=== PATIENT | female | born 1990 | race Caucasian/White ===

== ENCOUNTER 2022-04-09 14:09 | Observation (INO) ==
[2022-04-09] MEDS ORDERED: Ringers Solution, Lactated 1,000 ML IVC ONE (15:11)
[2022-04-09] MEDS ORDERED: Ringers Solution, Lactated 1,000 ML ONE (15:13)
[2022-04-09 15:40] LABS: Bilirubin,Urine Negative (Negative); Blood,Urine Negative (Negative); Clarity,Urine Turbid (Clear); Color,Urine Yellow (Yellow); Glucose,Urine (UA) Normal (Normal); Ketones,Urine 100 mg/dL (Negative); Leukocyte Esterase,Urine Negative (Negative); Mucus,Urine Many per lpf (None-Few); Nitrite,Urine Negative (Negative); Protein,Urine 50 mg/dL (Neg-Trace); RBC,Urine 0-3 per hpf (0-3); Specific Gravity,Urine 1.023 (1.010-1.025); Squamous Epithelial Cell,Urine Moderate per hpf (None-Few); Urobilinogen,Urine Normal (Normal)
[2022-04-09 15:47] LABS: Basophils % 0.2 %; Hemoglobin 11.1 g/dL (11.5-15.4); Immature Granulocytes % 0.7 % (0-4); Lymphocytes # 0.3 K/mcL (0.6-4.6); Lymphocytes % 5.3 %; Mean Corpuscular HGB Conc 33.6 g/dL (31.6-35.5); Mean Corpuscular Hemoglobin 30.3 pg (28.0-33.3); Mean Corpuscular Volume 90.2 fL (83.0-100.0); Mean Platelet Volume 11.7 fL (9.4-12.4); Monocytes # 0.6 K/mcL (0.0-1.3); Monocytes % 9.4 %; Neutrophils # 5.1 K/mcL (1.6-8.9); Platelet Count 107 K/mcL (140-400); Red Blood Count 3.66 M/mcL (3.82-4.97); Red Cell Distribution Width 12.9 % (11.5-14.5); Segmented Neutrophils % 84.4 %; White Blood Count 6.1 K/mcL (4.3-11.1)
[2022-04-09] MEDS ORDERED: Terconazole Vag CRM 20 GM TUBE VG SCH (21:00)
== END 2022-04-09 19:06 | disposition home or self-care (01) ==
LOC: 1NENULAB
PROVIDERS: ADMIT Obstetrics & Gynecology; ATTEND Obstetrics & Gynecology

== ENCOUNTER → 2022-04-23 22:00 | Observation (INO) ==
[2022-04-23] MEDS: Ringers Solution, Lactated 1,000 ML IVC SCH ×2 (12:54→19:17)
[2022-04-23 19:17] LABS: Amorphous Sediment,Urine Few per hpf (None-Few); Bacteria,Urine Few per hpf (None-Few); Bilirubin,Urine Negative (Negative); Blood,Urine Negative (Negative); Clarity,Urine Turbid (Clear); Color,Urine Yellow (Yellow); Glucose,Urine (UA) Normal (Normal); Ketones,Urine Negative (Negative); Leukocyte Esterase,Urine Negative (Negative); Mucus,Urine Many per lpf (None-Few); Nitrite,Urine Negative (Negative); Protein,Urine 30 mg/dL (Neg-Trace); RBC,Urine 0-3 per hpf (0-3); Specific Gravity,Urine 1.021 (1.010-1.025); Squamous Epithelial Cell,Urine Moderate per hpf (None-Few); Urobilinogen,Urine Normal (Normal); WBC,Urine 0-3 per hpf (0-3)
[~2022-04-23 22:00] MED LIST: *HR* HYDROmorphone PF 0.5 MG/0.5 ML SYRINGE IVP PRN; *HR* Labetalol 20 MG/4 ML SYRINGE IVP PRN; Acetaminophen IV 1,000 MG/100 ML BAG IVPB PRN; Morphine Sulfate 2 MG/ML SYRINGE IVP ONE; Morphine Sulfate 2 MG/ML SYRINGE SQ ONE; Promethazine 6.25 MG in Water for inj. (sterile) 20 ML IVPB PRN
== END | disposition home or self-care (01) ==
LOC: 1NENULAB
PROVIDERS: ADMIT Obstetrics & Gynecology; ATTEND Obstetrics & Gynecology

== ENCOUNTER 2022-04-25 15:05 | Inpatient (IN) ==
[2022-04-25] MEDS ORDERED: Famotidine 20 MG/2 ML VIAL IVP ONE (15:27)
[2022-04-25] MEDS ORDERED: Metoclopramide 10 MG/2 ML VIAL IVP ONE (15:27)
[2022-04-25] MEDS ORDERED: Ringers Solution, Lactated 1,000 ML IVC ONE (15:27)
[2022-04-25] MEDS ORDERED: OXYTOCIN/RINGERS LACTATE 10 UNIT/166.6 ML BAG IVC ONE (15:27)
[2022-04-25] MEDS ORDERED: CeFAZolin 2,000 MG/120 ML BAG IVPB ONE (15:27)
[2022-04-25] MEDS ORDERED: Oxytocin 30 UNIT/503 ML BAG IVC SCH ×2 (15:30→21:00)
[2022-04-25] MEDS ORDERED: Ringers Solution, Lactated 1,000 ML IVC SCH ×2 (15:30→21:00)
[2022-04-25] MEDS ORDERED: Ondansetron 4 MG/2 ML VIAL ONE (16:37)
[2022-04-25] MEDS ORDERED: *HR* FentaNYL (PF) 100 MCG/2 ML VIAL ONE (16:37)
[2022-04-25] MEDS ORDERED: *HR* Morphine Sulfate/PF 10 MG/10 ML AMPUL ONE (16:37)
[2022-04-25 17:10] LABS: Basophils % 0.2 %; Eosinophils % 0.1 %; Hematocrit 33.5 % (35.3-44.9); Immature Granulocytes % 0.8 % (0-4); Lymphocytes # 1.3 K/mcL (0.6-4.6); Lymphocytes % 14.5 %; Mean Corpuscular HGB Conc 32.8 g/dL (31.6-35.5); Mean Corpuscular Hemoglobin 29.9 pg (28.0-33.3); Mean Platelet Volume 11.9 fL (9.4-12.4); Monocytes # 0.8 K/mcL (0.0-1.3); Monocytes % 8.8 %; Neutrophils # 6.8 K/mcL (1.6-8.9); Platelet Count 139 K/mcL (140-400); Red Blood Count 3.68 M/mcL (3.82-4.97); Segmented Neutrophils % 75.6 %
[2022-04-25 17:12] LABS: Amphetamine Screen,Urine Negative ng/mL (Cutoff=1000); Barbiturate Screen,Urine Negative ng/mL (Cutoff=200); Benzodiazepines Screen,Urine Negative ng/mL (Cutoff=200); Cannabinoid Screen,Urine Negative ng/mL (Cutoff = 50); Cocaine Screen,Urine Negative ng/mL (Cutoff= 300); Opiate Screen,Urine Negative ng/mL (Cutoff=300); Phencyclidine Screen,Urine Negative ng/mL (Cutoff=25)
[2022-04-25] MEDS ORDERED: Acetaminophen IV 1,000 MG/100 ML BAG IVPB ONE (17:49)
[2022-04-25] MEDS ORDERED: Ringers Solution, Lactated 1,000 ML ONE (18:03)
[2022-04-25] MEDS ORDERED: Ketorolac 30 MG/ML VIAL ONE (18:44)
[2022-04-25] MEDS ORDERED: *HR* Nalbuphine 10 MG/ML AMPUL IV PRN (20:08)
[2022-04-25] MEDS ORDERED: Ondansetron 4 MG/2 ML VIAL IVP PRN (20:44)
[2022-04-25] MEDS ORDERED: Rho Immune Globulin 1,500 UNIT SYRINGE IM ONE (20:44)
[2022-04-25] MEDS ORDERED: *HR* OxyCODONE Immed Rel 5 MG TABLET PO PRN (20:44)
[2022-04-25] MEDS ORDERED: Simethicone 80 MG TAB.CHEW PO PRN (20:44)
[2022-04-25] MEDS ORDERED: Metoclopramide 10 MG/2 ML VIAL IVP PRN (20:44)
[2022-04-25] MEDS: Acetaminophen 325 MG TABLET PO SCH (23:39)
[2022-04-25] MEDS: *HR* Enoxaparin 60 MG/0.6 ML SYRINGE SQ SCH (23:39)
[2022-04-25] MEDS: Ibuprofen 600 MG TABLET PO SCH (23:40)
[2022-04-26 05:22] LABS: Basophils % 0.3 %; Eosinophils % 0.2 %; Hematocrit 30.2 % (35.3-44.9); Hemoglobin 9.8 g/dL (11.5-15.4); Immature Granulocytes % 0.5 % (0-4); Lymphocytes % 11.7 %; Mean Corpuscular HGB Conc 32.5 g/dL (31.6-35.5); Mean Corpuscular Hemoglobin 29.4 pg (28.0-33.3); Mean Corpuscular Volume 90.7 fL (83.0-100.0); Mean Platelet Volume 11.9 fL (9.4-12.4); Monocytes # 0.8 K/mcL (0.0-1.3); Monocytes % 9.4 %; Neutrophils # 6.9 K/mcL (1.6-8.9); Platelet Count 155 K/mcL (140-400); Red Blood Count 3.33 M/mcL (3.82-4.97); Red Cell Distribution Width 12.9 % (11.5-14.5); Segmented Neutrophils % 77.9 %; White Blood Count 8.8 K/mcL (4.3-11.1)
[2022-04-26] MEDS: Acetaminophen 325 MG TABLET PO SCH ×4 (06:49→22:34)
[2022-04-26] MEDS: Prenatal Vit/FA 1 EACH TABLET PO SCH (09:58)
[2022-04-26] MEDS: Ibuprofen 600 MG TABLET PO SCH ×3 (09:58→22:35)
[2022-04-26] MEDS: *HR* Enoxaparin 60 MG/0.6 ML SYRINGE SQ SCH ×2 (11:20→22:35)
[2022-04-27 07:22] VITALS: BP 130/83; PULSE 84; TEMP 98; O2SAT 95
[2022-04-27] MEDS: Acetaminophen 325 MG TABLET PO SCH (09:08)
[2022-04-27] MEDS: Ibuprofen 600 MG TABLET PO SCH (09:08)
[2022-04-27] MEDS: Prenatal Vit/FA 1 EACH TABLET PO SCH (09:08)
[2022-04-27] MEDS: *HR* Enoxaparin 60 MG/0.6 ML SYRINGE SQ SCH (12:01)
== END 2022-04-27 13:29 | disposition home or self-care (01) | DRG 788 ==
LOC: 1NENULAB 15:05 → 1NENUOBS 21:35
PROVIDERS: ADMIT Student in an Organized Health Care Education/Training Program; ATTEND Student in an Organized Health Care Education/Training Program